=== PATIENT | male | born 1985 | race African-American/Black ===

== ENCOUNTER 2016-10-20 03:11 | Emergency (ER) | payer OTHER ==
[~2016-10-20] VITALS: Ht 177.8 cm; Wt 63.0 kg
[2016-10-20 05:02] LABS: BASOPHILS % 0.6 % (0.0-2.0); EOSINOPHILS % 1.1 % (0.0-5.0); HEMATOCRIT. 40.7 % (42.0-52.0); HEMOGLOBIN. 13.7 g/dL (14.0-18.0); LYMPHOCYTES % 28.3 % (20.0-50.0); MEAN CORPUSCULAR HEMOGLOBIN 30.2 pg (28.0-32.0); MEAN CORPUSCULAR HGB CONC 33.6 g/dL (31.0-37.0); MEAN CORPUSCULAR VOLUME 89.7 fL (80.0-94.0); MEAN PLATELET VOLUME 8.5 fl (7.4-10.4); MONOCYTES % 6.8 % (2.0-8.0); NEUTROPHILS % 63.2 % (40.0-76.0); PLATELET 197 x1000/uL (130-400); RED BLOOD CELL COUNT 4.53 mill/uL (4.7-6.1); RED CELL DISTRIBUTION WIDTH 12.8 % (11.6-14.6); WHITE BLOOD COUNT 10.3 x1000/uL (4.5-11.0)
[2016-10-20 05:17] LABS: ALANINE AMINOTRANSFERASE 21 IU/L (13-61); ALBUMIN 3.6 g/dL (3.4-5.0); ANION GAP 13; CALCIUM 8.5 mg/dL (8.5-10.1); CARBON DIOXIDE 28 mEq/L (21-32); CHLORIDE 106 mEq/L (98-107); ETHANOL BLOOD < 10 mg/dL; INDEX HEMOLYSI 1 (1-3); INDEX ICTERIC 1 (1-4); INDEX LIPEMIC 1 (1-3); UREA NITROGEN BLOOD 9 mg/dL (7-21); eGFR > 60 mL/min (>60)
[2016-10-20 06:25] VITALS: BP 148/85
[2016-10-20 07:17] LABS: *AMPHETAMINES SCREEN URINE NEGATIVE (NEGATIVE); *BARBITURATES SCREEN URINE NEGATIVE (NEGATIVE); *BENZODIAZEPINES SCREEN URINE NEGATIVE (NEGATIVE); *COCAINE SCREEN URINE NEGATIVE (NEGATIVE); CANNABINOID URINE SCREEN PRESUMTIVE POSITIVE (NEGATIVE); ECSTASY MDMA SCREEN URINE NEGATIVE (NEGATIVE); METHADONE URINE SCREEN NEGATIVE (NEGATIVE); OPIATES URINE SCREEN NEGATIVE (NEGATIVE); PHENCYCLIDINE URINE SCREEN NEGATIVE (NEGATIVE)
== END 2016-10-20 07:05 | disposition home or self-care (01) ==
LOC: ER 03:13
DX: M94.0 Chondrocostal junction syndrome [Tietze] (principal); F12.10 Cannabis abuse, uncomplicated
CPT/HCPCS: 36415; 71010; 80053; 80305; 85025; 93005; 99285; G0482

== ENCOUNTER 2016-11-10 01:16 | Emergency (ER) | payer OTHER ==
[~2016-11-10] VITALS: Ht 185.4 cm; Wt 65.0 kg
[2016-11-10 01:39] VITALS: BP 138/81
[2016-11-10] MEDS ORDERED: IBUPROFEN 600MG TABLET PO ONE (02:45)
== END 2016-11-10 04:01 | disposition home or self-care (01) ==
LOC: ER 01:16
DX: M94.0 Chondrocostal junction syndrome [Tietze] (principal); F17.210 Nicotine dependence, cigarettes, uncomplicated
CPT/HCPCS: 71020; 99284

== ENCOUNTER 2016-11-13 06:09 | Emergency (ER) | payer OTHER ==
[~2016-11-13] VITALS: Ht 177.8 cm; Wt 68.2 kg
[2016-11-13] MEDS ORDERED: IBUPROFEN 800MG TABLET PO ONE (07:45)
[2016-11-13 07:46] VITALS: BP 106/55
== END 2016-11-13 08:06 | disposition home or self-care (01) ==
LOC: ER 06:11
DX: M62.830 Muscle spasm of back (principal); F17.210 Nicotine dependence, cigarettes, uncomplicated; Z98.1 Arthrodesis status
CPT/HCPCS: 99283

== ENCOUNTER 2017-01-05 05:36 | Emergency (ER) | payer OTHER ==
[~2017-01-05] VITALS: Ht 170.2 cm; Wt 64.0 kg
[2017-01-05 06:42] LABS: BASOPHILS % 0.7 % (0.0-2.0); EOSINOPHILS % 3.4 % (0.0-5.0); HEMATOCRIT. 39.5 % (42.0-52.0); HEMOGLOBIN. 13.6 g/dL (14.0-18.0); LYMPHOCYTES % 23.3 % (20.0-50.0); MEAN CORPUSCULAR HEMOGLOBIN 30.2 pg (28.0-32.0); MEAN CORPUSCULAR VOLUME 88.1 fL (80.0-94.0); MEAN PLATELET VOLUME 8.7 fl (7.4-10.4); MONOCYTES % 9.5 % (2.0-8.0); NEUTROPHILS % 63.1 % (40.0-76.0); PLATELET 189 x1000/uL (130-400); RED BLOOD CELL COUNT 4.49 mill/uL (4.7-6.1); RED CELL DISTRIBUTION WIDTH 13.9 % (11.6-14.6)
[2017-01-05 06:50] LABS: INR 1.2; PARTIAL THROMBOPLASTIN TIME 27.1 sec (24.0-34.0); PROTHROMBIN TIME 12.4 sec
[2017-01-05 06:54] LABS: CARBON DIOXIDE 27 mEq/L (21-32); CHLORIDE 104 mEq/L (98-107); ETHANOL BLOOD < 10 mg/dL
[2017-01-05] MEDS ORDERED: MAGNESIUM/ALUMINUM HYDROXIDE/SIMETHICONE 30ML UDC PO ONE (07:45)
[2017-01-05 07:59] LABS: *AMPHETAMINES SCREEN URINE NEGATIVE (NEGATIVE); *BARBITURATES SCREEN URINE NEGATIVE (NEGATIVE); *BENZODIAZEPINES SCREEN URINE NEGATIVE (NEGATIVE); *COCAINE SCREEN URINE NEGATIVE (NEGATIVE); CANNABINOID URINE SCREEN PRESUMTIVE POSITIVE (NEGATIVE); METHADONE URINE SCREEN NEGATIVE (NEGATIVE); OPIATES URINE SCREEN NEGATIVE (NEGATIVE); PHENCYCLIDINE URINE SCREEN NEGATIVE (NEGATIVE)
[2017-01-05 09:48] VITALS: BP 121/76
== END 2017-01-05 09:49 | disposition home or self-care (01) ==
LOC: ER 05:36
DX: R10.13 Epigastric pain (principal); M54.12 Radiculopathy, cervical region; F12.10 Cannabis abuse, uncomplicated
CPT/HCPCS: 36415; 72040; 80053; 80305; 83690; 85025; 85610; 85730; 99285; G0482

== ENCOUNTER 2017-01-14 00:32 | Emergency (ER) | payer OTHER ==
[~2017-01-14] VITALS: Ht 177.8 cm; Wt 73.0 kg
[2017-01-14] MEDS ORDERED: IBUPROFEN 600MG TABLET PO ONE (04:00)
[2017-01-14 05:19] VITALS: BP 118/76
== END 2017-01-14 05:31 | disposition home or self-care (01) ==
LOC: ER 00:32
DX: M25.774 Osteophyte, right foot (principal)
CPT/HCPCS: 99283

== ENCOUNTER 2017-01-29 03:31 | Emergency (ER) | payer OTHER ==
[~2017-01-29] VITALS: Ht 180.3 cm; Wt 66.0 kg
[2017-01-29] MEDS ORDERED: IBUPROFEN 600MG TABLET PO ONE (04:45)
[2017-01-29 04:59] VITALS: BP 92/45
[2017-01-29 05:05] LABS: BASOPHILS % 0.8 % (0.0-2.0); EOSINOPHILS % 1.8 % (0.0-5.0); HEMATOCRIT. 40.5 % (42.0-52.0); HEMOGLOBIN. 13.6 g/dL (14.0-18.0); LYMPHOCYTES % 28.4 % (20.0-50.0); MEAN CORPUSCULAR HEMOGLOBIN 29.9 pg (28.0-32.0); MEAN CORPUSCULAR VOLUME 89.1 fL (80.0-94.0); MEAN PLATELET VOLUME 8.6 fl (7.4-10.4); MONOCYTES % 6.8 % (2.0-8.0); NEUTROPHILS % 62.2 % (40.0-76.0); PLATELET 198 x1000/uL (130-400); RED BLOOD CELL COUNT 4.55 mill/uL (4.7-6.1); RED CELL DISTRIBUTION WIDTH 13.9 % (11.6-14.6)
[2017-01-29 05:21] LABS: CARBON DIOXIDE 24 mEq/L (21-32); CHLORIDE 107 mEq/L (98-107); ETHANOL BLOOD 36 mg/dL; TROPONIN I < 0.02 ng/mL (0.00-0.04)
== END 2017-01-29 06:42 | disposition home or self-care (01) ==
LOC: ER 03:31
DX: M54.6 Pain in thoracic spine (principal); F12.10 Cannabis abuse, uncomplicated; F10.10 Alcohol abuse, uncomplicated; F17.210 Nicotine dependence, cigarettes, uncomplicated; Y90.1 Blood alcohol level of 20-39 mg/100 ml
CPT/HCPCS: 36415; 71010; 80053; 83690; 84484; 85025; 93005; 99285; G0482; Z7610

== ENCOUNTER 2017-02-08 20:59 | Emergency (ER) | payer OTHER | END 2017-02-08 22:18 | disposition left against medical advice (07) | LOC: ER 22:10 | DX: Z53.21 Procedure and treatment not carried out due to patient leaving prior to being seen by health care provider (principal) ==

== ENCOUNTER 2017-02-09 02:20 | Emergency (ER) | payer OTHER ==
[~2017-02-09] VITALS: Ht 177.8 cm; Wt 63.0 kg
[2017-02-09] MEDS ORDERED: KETOROLAC 60MG/2ML VIAL IM ONE (06:30)
[2017-02-09] MEDS ORDERED: IBUPROFEN 600MG TABLET PO ONE (06:30)
[2017-02-09 06:52] VITALS: BP 124/69
== END 2017-02-09 07:12 | disposition home or self-care (01) ==
LOC: ER 02:20
DX: M54.6 Pain in thoracic spine (principal); F17.200 Nicotine dependence, unspecified, uncomplicated; F12.10 Cannabis abuse, uncomplicated
CPT/HCPCS: 99283; J1885

== ENCOUNTER 2017-02-16 02:11 | Emergency (ER) | payer OTHER ==
[~2017-02-16] VITALS: Ht 177.8 cm; Wt 66.0 kg
[2017-02-16] MEDS ORDERED: IBUPROFEN 600MG TABLET PO ONE (03:00)
[2017-02-16 03:07] VITALS: BP 120/69
== END 2017-02-16 03:27 | disposition home or self-care (01) ==
LOC: ER 02:11
DX: M54.5 Low back pain (principal); R51 Headache; Z59.0 Homelessness; F12.10 Cannabis abuse, uncomplicated
CPT/HCPCS: 99282; 99283

== ENCOUNTER 2017-03-27 22:57 | Emergency (ER) | payer OTHER ==
[~2017-03-27] VITALS: Ht 175.3 cm; Wt 64.0 kg
[2017-03-28 01:32] VITALS: BP 90/51
== END 2017-03-28 03:54 | disposition left against medical advice (07) ==
LOC: ER 22:57
DX: M54.9 Dorsalgia, unspecified (principal); Z53.21 Procedure and treatment not carried out due to patient leaving prior to being seen by health care provider

== ENCOUNTER 2017-04-15 01:04 | Emergency (ER) | payer MEDICAID, OTHER ==
[~2017-04-15] VITALS: Ht 180.3 cm; Wt 68.0 kg
[2017-04-15] MEDS ORDERED: IBUPROFEN 800MG TABLET PO ONE (06:30)
[2017-04-15 09:06] VITALS: BP 136/55
== END 2017-04-15 10:32 | disposition home or self-care (01) ==
LOC: ER 01:04
DX: M54.89 Other dorsalgia (principal); F12.90 Cannabis use, unspecified, uncomplicated
CPT/HCPCS: 99283; Z7610

== ENCOUNTER 2017-04-19 01:43 | Emergency (ER) | payer SELFPAY ==
[~2017-04-19] VITALS: Ht 175.3 cm; Wt 57.0 kg
[2017-04-19 01:55] VITALS: BP 123/82
== END 2017-04-19 07:23 | disposition left against medical advice (07) ==
LOC: ER 01:43
DX: M54.9 Dorsalgia, unspecified (principal); Z53.21 Procedure and treatment not carried out due to patient leaving prior to being seen by health care provider

== ENCOUNTER 2017-04-25 02:53 | Emergency (ER) | payer MEDICAID ==
[~2017-04-25] VITALS: Ht 193 cm; Wt 68.0 kg
[2017-04-25] MEDS ORDERED: KETOROLAC 60MG/2ML VIAL IM ONE (06:30)
[2017-04-25 07:07] VITALS: BP 116/89
== END 2017-04-25 07:11 | disposition home or self-care (01) ==
LOC: ER 02:53
DX: G89.29 Other chronic pain (principal); M54.9 Dorsalgia, unspecified; F17.200 Nicotine dependence, unspecified, uncomplicated; F12.10 Cannabis abuse, uncomplicated
CPT/HCPCS: 96372; 99283; J1885

== ENCOUNTER 2017-05-09 04:41 | Emergency (ER) | payer MEDICAID | END 2017-05-09 05:25 | disposition left against medical advice (07) | LOC: ER 04:41 | DX: M54.9 Dorsalgia, unspecified (principal); Z53.21 Procedure and treatment not carried out due to patient leaving prior to being seen by health care provider ==

== ENCOUNTER 2017-05-09 07:16 | Emergency (ER) | payer MEDICAID ==
[~2017-05-09] VITALS: Ht 177.8 cm; Wt 68.0 kg
[2017-05-09 08:10] VITALS: BP 115/79
== END 2017-05-09 08:12 | disposition home or self-care (01) ==
LOC: ER 07:53
DX: M54.6 Pain in thoracic spine (principal); F17.200 Nicotine dependence, unspecified, uncomplicated; F12.10 Cannabis abuse, uncomplicated
CPT/HCPCS: 99282

== ENCOUNTER 2017-05-21 04:03 | Emergency (ER) | payer MEDICAID ==
[~2017-05-21] VITALS: Ht 177.8 cm; Wt 70.0 kg
[2017-05-21 04:22] VITALS: BP 116/71
== END 2017-05-21 06:52 | disposition left against medical advice (07) ==
LOC: ER 04:03
DX: J02.9 Acute pharyngitis, unspecified (principal); M54.5 Low back pain; Z53.21 Procedure and treatment not carried out due to patient leaving prior to being seen by health care provider

== ENCOUNTER 2017-06-07 20:35 | Emergency (ER) | payer MEDICAID ==
[~2017-06-07] VITALS: Ht 177.8 cm; Wt 68.0 kg
[2017-06-07] MEDS ORDERED: POVIDONE-IODINE 10% TOPICAL SOLN 240ML TOP ONE (21:45)
[2017-06-07] MEDS ORDERED: BACITRACIN ZINC OINT UDPKT TOP ONE (21:45)
[2017-06-07 22:53] VITALS: BP 110/61
== END 2017-06-07 22:54 | disposition home or self-care (01) ==
LOC: ER 20:55
DX: S90.415A Abrasion, left lesser toe(s), initial encounter (principal); S90.414A Abrasion, right lesser toe(s), initial encounter; S90.412A Abrasion, left great toe, initial encounter; S90.411A Abrasion, right great toe, initial encounter; F17.200 Nicotine dependence, unspecified, uncomplicated; F12.10 Cannabis abuse, uncomplicated; X58.XXXA Exposure to other specified factors, initial encounter; Y93.89 Activity, other specified; Y92.89 Other specified places as the place of occurrence of the external cause; Y99.8 Other external cause status
CPT/HCPCS: 99283; A4246

== ENCOUNTER 2017-06-14 23:34 | Emergency (ER) | payer MEDICAID ==
[~2017-06-14] VITALS: Ht 177.8 cm; Wt 68.0 kg
[2017-06-15] MEDS ORDERED: IBUPROFEN 800MG TABLET PO ONE (06:30)
[2017-06-15 07:44] VITALS: BP 106/72
== END 2017-06-15 08:30 | disposition home or self-care (01) ==
LOC: ER 23:59
DX: S90.822A Blister (nonthermal), left foot, initial encounter (principal); S90.821A Blister (nonthermal), right foot, initial encounter; M54.6 Pain in thoracic spine; F17.200 Nicotine dependence, unspecified, uncomplicated; F12.10 Cannabis abuse, uncomplicated; X58.XXXA Exposure to other specified factors, initial encounter; Y93.89 Activity, other specified; Y92.89 Other specified places as the place of occurrence of the external cause; Y99.8 Other external cause status
CPT/HCPCS: 99283

== ENCOUNTER 2017-06-18 03:22 | Emergency (ER) | payer MEDICAID ==
[~2017-06-18] VITALS: Ht 180.3 cm; Wt 68.0 kg
[2017-06-18] MEDS ORDERED: ACETAMINOPHEN 500MG TABLET PO ONE (07:00)
[2017-06-18 07:12] VITALS: BP 107/61
== END 2017-06-18 07:19 | disposition home or self-care (01) ==
LOC: ER 03:22
DX: M54.89 Other dorsalgia (principal); F17.210 Nicotine dependence, cigarettes, uncomplicated; F12.10 Cannabis abuse, uncomplicated
CPT/HCPCS: 99283

== ENCOUNTER 2017-07-11 22:48 | Emergency (ER) | payer MEDICAID ==
[~2017-07-11] VITALS: Ht 177.8 cm; Wt 68.0 kg
[2017-07-12] VITALS: BP 131/83
== END 2017-07-12 00:02 | disposition home or self-care (01) ==
LOC: ER 22:48
DX: K04.7 Periapical abscess without sinus (principal); K02.9 Dental caries, unspecified
CPT/HCPCS: 99283

== ENCOUNTER 2017-07-24 06:50 | Emergency (ER) | payer MEDICAID ==
[~2017-07-24] VITALS: Ht 177.8 cm; Wt 68.0 kg
[2017-07-24 07:02] VITALS: BP 105/41
== END 2017-07-24 11:59 | disposition left against medical advice (07) ==
LOC: ER 07:14
DX: M54.9 Dorsalgia, unspecified (principal); F17.210 Nicotine dependence, cigarettes, uncomplicated; F12.90 Cannabis use, unspecified, uncomplicated; F10.10 Alcohol abuse, uncomplicated
CPT/HCPCS: 99281

== ENCOUNTER 2017-08-21 23:59 | Emergency (ER) | payer MEDICAID ==
[~2017-08-21] VITALS: Ht 177.8 cm; Wt 68.0 kg
[2017-08-22 04:45] VITALS: BP 110/57
== END 2017-08-22 04:47 | disposition home or self-care (01) ==
LOC: ER 23:59
DX: J40 Bronchitis, not specified as acute or chronic (principal); F12.10 Cannabis abuse, uncomplicated; F17.200 Nicotine dependence, unspecified, uncomplicated
CPT/HCPCS: 99283

== ENCOUNTER 2017-09-02 04:08 | Emergency (ER) | payer MEDICAID ==
[~2017-09-02] VITALS: Ht 177.8 cm; Wt 62.0 kg
[2017-09-02 04:20] VITALS: BP 121/73
== END 2017-09-02 08:45 | disposition left against medical advice (07) ==
LOC: ER 04:08
DX: R05 Cough (principal); M54.9 Dorsalgia, unspecified; Z53.21 Procedure and treatment not carried out due to patient leaving prior to being seen by health care provider

== ENCOUNTER 2017-09-04 07:20 | Emergency (ER) | payer MEDICAID ==
[~2017-09-04] VITALS: Ht 177.8 cm; Wt 64.3 kg
[2017-09-04 07:35] VITALS: BP 116/64
== END 2017-09-04 11:02 | disposition left against medical advice (07) ==
LOC: ER 07:45
DX: Z53.21 Procedure and treatment not carried out due to patient leaving prior to being seen by health care provider (principal)

== ENCOUNTER 2017-09-05 01:50 | Emergency (ER) | payer MEDICAID ==
[~2017-09-05] VITALS: Ht 177.8 cm; Wt 68.0 kg
[2017-09-05 05:26] VITALS: BP 105/44
== END 2017-09-05 07:56 | disposition home or self-care (01) ==
LOC: ER 02:11
DX: J06.9 Acute upper respiratory infection, unspecified (principal); F17.200 Nicotine dependence, unspecified, uncomplicated; I10 Essential (primary) hypertension; F12.10 Cannabis abuse, uncomplicated
CPT/HCPCS: 71045; 99283; Z7610

== ENCOUNTER 2017-09-08 19:59 | Emergency (ER) | payer MEDICAID ==
[~2017-09-08] VITALS: Ht 177.8 cm; Wt 64.0 kg
[2017-09-08] MEDS ORDERED: KETOROLAC 60MG/2ML VIAL IM ONE (21:45)
[2017-09-08 22:09] VITALS: BP 129/84
== END 2017-09-08 21:40 | disposition home or self-care (01) ==
LOC: ER 21:03
DX: M54.9 Dorsalgia, unspecified (principal); M79.1 Myalgia; F17.200 Nicotine dependence, unspecified, uncomplicated; F12.10 Cannabis abuse, uncomplicated
CPT/HCPCS: 96372; 99283; J1885

== ENCOUNTER 2017-09-09 07:21 | Emergency (ER) | payer MEDICAID ==
[~2017-09-09] VITALS: Ht 182.9 cm; Wt 68.2 kg
[2017-09-09 08:32] VITALS: BP 127/81
== END 2017-09-09 09:05 | disposition home or self-care (01) ==
LOC: ER 07:28
DX: J02.9 Acute pharyngitis, unspecified (principal); F17.200 Nicotine dependence, unspecified, uncomplicated; F12.10 Cannabis abuse, uncomplicated
CPT/HCPCS: 99281; 99283

== ENCOUNTER 2017-09-14 03:55 | Emergency (ER) | payer MEDICAID ==
[~2017-09-14] VITALS: Ht 177.8 cm; Wt 64.0 kg
[2017-09-14 04:00] VITALS: BP 134/47
== END 2017-09-14 08:03 | disposition left against medical advice (07) ==
LOC: ER 03:55
DX: M54.9 Dorsalgia, unspecified (principal); Z53.21 Procedure and treatment not carried out due to patient leaving prior to being seen by health care provider

== ENCOUNTER 2017-09-15 03:49 | Emergency (ER) | payer MEDICAID ==
[~2017-09-15] VITALS: Ht 177.8 cm; Wt 64.0 kg
[2017-09-15 04:16] VITALS: BP 114/65
== END 2017-09-15 04:49 | disposition home or self-care (01) ==
LOC: ER 03:49
DX: R05 Cough (principal); F17.200 Nicotine dependence, unspecified, uncomplicated; F12.10 Cannabis abuse, uncomplicated
CPT/HCPCS: 99283

== ENCOUNTER 2017-09-17 06:06 | Emergency (ER) | payer MEDICAID ==
[~2017-09-17] VITALS: Ht 177.8 cm; Wt 63.0 kg
[2017-09-17 06:09] VITALS: BP 107/71
== END 2017-09-17 08:21 | disposition left against medical advice (07) ==
LOC: ER 06:15
DX: M54.9 Dorsalgia, unspecified (principal); Z53.21 Procedure and treatment not carried out due to patient leaving prior to being seen by health care provider

== ENCOUNTER 2017-09-18 01:19 | Emergency (ER) | payer MEDICAID ==
[~2017-09-18] VITALS: Ht 177.8 cm; Wt 68.0 kg
[2017-09-18 06:10] VITALS: BP 118/62
[2017-09-18] MEDS ORDERED: ACETAMINOPHEN 325MG TABLET PO ONE (06:30)
== END 2017-09-18 06:58 | disposition home or self-care (01) ==
LOC: ER 02:27
DX: R51 Headache (principal); J06.9 Acute upper respiratory infection, unspecified; F17.200 Nicotine dependence, unspecified, uncomplicated
CPT/HCPCS: 99282

== ENCOUNTER 2017-09-23 22:07 | Emergency (ER) | payer MEDICAID ==
[~2017-09-23] VITALS: Ht 180.3 cm; Wt 68.0 kg
[2017-09-24 00:42] VITALS: BP 122/72
== END 2017-09-24 01:17 | disposition home or self-care (01) ==
LOC: ER 22:07
DX: L20.9 Atopic dermatitis, unspecified (principal); F17.200 Nicotine dependence, unspecified, uncomplicated; F12.10 Cannabis abuse, uncomplicated
CPT/HCPCS: 99283

== ENCOUNTER 2017-09-30 03:38 | Emergency (ER) | payer MEDICAID ==
[~2017-09-30] VITALS: Ht 180.3 cm; Wt 69.0 kg
[2017-09-30] MEDS ORDERED: HALOPERIDOL LACTATE 5MG/ML VIAL IM ONE (08:30)
[2017-09-30] MEDS ORDERED: IBUPROFEN 600MG TABLET PO ONE (08:30)
[2017-09-30 08:58] VITALS: BP 114/72
== END 2017-09-30 09:11 | disposition home or self-care (01) ==
LOC: ER 04:04
DX: S29.012A Strain of muscle and tendon of back wall of thorax, initial encounter (principal); B86 Scabies; F17.200 Nicotine dependence, unspecified, uncomplicated; Z59.0 Homelessness; X58.XXXA Exposure to other specified factors, initial encounter; W57.XXXA Bitten or stung by nonvenomous insect and other nonvenomous arthropods, initial encounter; Y93.89 Activity, other specified; Y92.488 Other paved roadways as the place of occurrence of the external cause
CPT/HCPCS: 99283; Z7610

== ENCOUNTER 2017-10-03 01:45 | Emergency (ER) | payer MEDICAID ==
[~2017-10-03] VITALS: Ht 180.3 cm; Wt 69.0 kg
[2017-10-03 01:50] VITALS: BP 106/61
== END 2017-10-03 04:00 | disposition left against medical advice (07) ==
LOC: ER 01:45
DX: J02.9 Acute pharyngitis, unspecified (principal); R51 Headache; Z53.21 Procedure and treatment not carried out due to patient leaving prior to being seen by health care provider

== ENCOUNTER 2017-11-03 05:02 | Emergency (ER) | payer MEDICAID ==
[~2017-11-03] VITALS: Ht 177.8 cm; Wt 141.0 kg
[2017-11-03] MEDS ORDERED: IBUPROFEN 600MG TABLET PO ONE (09:00)
[2017-11-03 09:30] VITALS: BP 115/61
== END 2017-11-03 10:05 | disposition home or self-care (01) ==
LOC: ER 05:02
DX: M54.89 Other dorsalgia (principal); R21 Rash and other nonspecific skin eruption; F17.200 Nicotine dependence, unspecified, uncomplicated; F12.10 Cannabis abuse, uncomplicated
CPT/HCPCS: 99283

== ENCOUNTER 2018-04-15 00:28 | Emergency (ER) | payer MEDICAID ==
[~2018-04-15] VITALS: Ht 180.3 cm; Wt 64.0 kg
[2018-04-15 07:00] VITALS: BP 116/58
== END 2018-04-15 07:37 | disposition home or self-care (01) ==
LOC: ER 00:28
DX: B86 Scabies (principal); F17.210 Nicotine dependence, cigarettes, uncomplicated; F12.90 Cannabis use, unspecified, uncomplicated; Z59.0 Homelessness; Z53.21 Procedure and treatment not carried out due to patient leaving prior to being seen by health care provider

== ENCOUNTER 2018-04-17 05:42 | Emergency (ER) | payer MEDICAID ==
[~2018-04-17] VITALS: Ht 180.3 cm; Wt 64.0 kg
[2018-04-17] MEDS ORDERED: HYDROCORTISONE 1% OINT 28.35GM TOP SCH (06:30)
[2018-04-17] MEDS ORDERED: PREDNISONE 20MG TABLET PO ONE (06:30)
[2018-04-17 07:56] VITALS: BP 119/72
== END 2018-04-17 07:58 | disposition home or self-care (01) ==
LOC: ER 05:42
DX: L20.9 Atopic dermatitis, unspecified (principal); F17.200 Nicotine dependence, unspecified, uncomplicated; F12.10 Cannabis abuse, uncomplicated
CPT/HCPCS: 99283; J7512

== ENCOUNTER 2018-04-19 04:56 | Emergency (ER) | payer MEDICAID ==
[~2018-04-19] VITALS: Ht 177.8 cm; Wt 64.0 kg
[2018-04-19] MEDS ORDERED: IBUPROFEN 600MG TABLET PO ONE (06:15)
[2018-04-19 07:43] VITALS: BP 147/88
== END 2018-04-19 07:52 | disposition home or self-care (01) ==
LOC: ER 05:46
DX: S93.492A Sprain of other ligament of left ankle, initial encounter (principal); S93.692A Other sprain of left foot, initial encounter; F12.10 Cannabis abuse, uncomplicated; X50.1XXA Overexertion from prolonged static or awkward postures, initial encounter; Y93.89 Activity, other specified; Y92.89 Other specified places as the place of occurrence of the external cause; Y99.8 Other external cause status
CPT/HCPCS: 73610; 73630; 99284; Z7610

== ENCOUNTER 2018-04-23 12:52 | Emergency (ER) | payer MEDICAID ==
[~2018-04-23] VITALS: Ht 180.3 cm; Wt 68.0 kg
[2018-04-23 13:10] VITALS: BP 110/65
== END 2018-04-23 17:07 | disposition left against medical advice (07) ==
LOC: ER 14:20
DX: R10.13 Epigastric pain (principal); M54.9 Dorsalgia, unspecified; F12.10 Cannabis abuse, uncomplicated; Z53.21 Procedure and treatment not carried out due to patient leaving prior to being seen by health care provider

== ENCOUNTER 2018-04-24 00:18 | Emergency (ER) | payer MEDICAID ==
[~2018-04-24] VITALS: Ht 177.8 cm; Wt 65.0 kg
[2018-04-24] MEDS ORDERED: IBUPROFEN 600MG TABLET PO ONE (03:30)
[2018-04-24 05:21] LABS: CLARITY URINE CLEAR (CLEAR); COLOR URINE DARK YELLOW (YELLOW); KETONES URINE TRACE (NEGATIVE); NITRITE URINE NEGATIVE (NEGATIVE); OCCULT BLOOD URINE NEGATIVE (NEGATIVE); PH URINE 5.5 (4.5-8.0); PROTEIN URINE TRACE (NEGATIVE)
[2018-04-24 05:22] LABS: LEUKOCYTE ESTERASE URINE 1+ (NEGATIVE)
[2018-04-24 05:38] LABS: *AMPHETAMINES SCREEN URINE NEGATIVE (NEGATIVE); *BARBITURATES SCREEN URINE NEGATIVE (NEGATIVE); *BENZODIAZEPINES SCREEN URINE NEGATIVE (NEGATIVE)
[2018-04-24 05:39] LABS: *COCAINE SCREEN URINE NEGATIVE (NEGATIVE); METHADONE URINE SCREEN NEGATIVE (NEGATIVE); OPIATES URINE SCREEN NEGATIVE (NEGATIVE); PHENCYCLIDINE URINE SCREEN NEGATIVE (NEGATIVE)
[2018-04-24 05:41] LABS: CANNABINOID URINE SCREEN PRESUMTIVE POSITIVE (NEGATIVE)
[2018-04-24] MEDS ORDERED: CEFTRIAXONE SODIUM 250 MG/VIAL IM ONE (05:45)
[2018-04-24] MEDS ORDERED: AZITHROMYCIN 500 MG TABLET PO ONE (05:45)
[2018-04-24 06:34] VITALS: BP 116/53
== END 2018-04-24 06:39 | disposition home or self-care (01) ==
LOC: ER 01:34
DX: N39.0 Urinary tract infection, site not specified (principal); F17.210 Nicotine dependence, cigarettes, uncomplicated
CPT/HCPCS: 80305; 81003; 87086; 96372; 99284; J0696; Z7610

== ENCOUNTER 2018-04-30 10:51 | Emergency (ER) | payer MEDICAID ==
[~2018-04-30] VITALS: Ht 177.8 cm; Wt 68.0 kg
[2018-04-30 10:55] VITALS: BP 102/59
== END 2018-04-30 15:47 | disposition left against medical advice (07) ==
LOC: ER 10:51
DX: J02.9 Acute pharyngitis, unspecified (principal); R21 Rash and other nonspecific skin eruption; Z53.21 Procedure and treatment not carried out due to patient leaving prior to being seen by health care provider

== ENCOUNTER 2018-04-30 21:16 | Emergency (ER) | payer MEDICAID ==
[~2018-04-30] VITALS: Ht 177.8 cm; Wt 66.0 kg
[2018-04-30 21:35] VITALS: BP 130/50
== END 2018-04-30 23:00 | disposition left against medical advice (07) ==
LOC: ER 21:16
DX: R07.89 Other chest pain (principal); R21 Rash and other nonspecific skin eruption; Z53.21 Procedure and treatment not carried out due to patient leaving prior to being seen by health care provider

== ENCOUNTER 2018-05-01 05:07 | Emergency (ER) | payer MEDICAID ==
[~2018-05-01] VITALS: Ht 177.8 cm; Wt 64.0 kg
[2018-05-01] MEDS ORDERED: ACETAMINOPHEN 325MG TABLET PO STA (07:08)
[2018-05-01] MEDS ORDERED: VISCOUS LIDOCAINE 2% 15 ML UDC PO STA (07:08)
[2018-05-01] MEDS ORDERED: MAGNESIUM/ALUMINUM HYDROXIDE/SIMETHICONE 30ML UDC PO STA (07:08)
[2018-05-01 08:04] LABS: EOSINOPHILS % 7.2 % (0.0-5.0); HEMATOCRIT. 43.9 % (42.0-52.0); LYMPHOCYTES % 23.5 % (20.0-50.0); MEAN CORPUSCULAR HEMOGLOBIN 30.3 pg (28.0-32.0); MEAN CORPUSCULAR VOLUME 88.6 fL (80.0-94.0); MEAN PLATELET VOLUME 8.4 fl (7.4-10.4); MONOCYTES % 7.6 % (2.0-8.0); NEUTROPHILS % 60.7 % (40.0-76.0); PLATELET 266 x1000/uL (130-400); RED BLOOD CELL COUNT 4.96 mill/uL (4.7-6.1); RED CELL DISTRIBUTION WIDTH 13.1 % (11.6-14.6)
[2018-05-01 08:06] LABS: CHLORIDE 104 mEq/L (98-107)
[2018-05-01 08:10] LABS: ETHANOL BLOOD < 10 mg/dL
[2018-05-01 10:07] LABS: CANNABINOID URINE SCREEN PRESUMTIVE POSITIVE (NEGATIVE); METHADONE URINE SCREEN NEGATIVE (NEGATIVE); OPIATES URINE SCREEN NEGATIVE (NEGATIVE); PHENCYCLIDINE URINE SCREEN NEGATIVE (NEGATIVE)
[2018-05-01 10:09] LABS: *BARBITURATES SCREEN URINE NEGATIVE (NEGATIVE)
[2018-05-01 10:10] LABS: *AMPHETAMINES SCREEN URINE NEGATIVE (NEGATIVE)
[2018-05-01 10:11] LABS: *COCAINE SCREEN URINE NEGATIVE (NEGATIVE)
[2018-05-01 10:14] LABS: *BENZODIAZEPINES SCREEN URINE NEGATIVE (NEGATIVE)
[2018-05-01 10:54] VITALS: BP 115/70
== END 2018-05-01 10:59 | disposition home or self-care (01) ==
LOC: ER 05:07
DX: R07.89 Other chest pain (principal); F12.10 Cannabis abuse, uncomplicated; F17.200 Nicotine dependence, unspecified, uncomplicated
CPT/HCPCS: 36415; 71045; 73630; 80053; 80305; 83690; 85025; 93005; 99285; G0482

== ENCOUNTER 2018-05-01 23:19 | Emergency (ER) | payer MEDICAID ==
[~2018-05-01] VITALS: Ht 177.8 cm; Wt 64.0 kg
[2018-05-01 23:45] VITALS: BP 120/60
== END 2018-05-02 00:39 | disposition left against medical advice (07) ==
LOC: ER 23:19
DX: Z53.21 Procedure and treatment not carried out due to patient leaving prior to being seen by health care provider (principal)

== ENCOUNTER 2018-05-03 00:36 | Emergency (ER) | payer MEDICAID ==
[~2018-05-03] VITALS: Ht 177.8 cm; Wt 66.0 kg
[2018-05-03 04:19] VITALS: BP 124/70
== END 2018-05-03 04:22 | disposition home or self-care (01) ==
LOC: ER 00:36
DX: J06.9 Acute upper respiratory infection, unspecified (principal); F12.10 Cannabis abuse, uncomplicated
CPT/HCPCS: 99283

== ENCOUNTER 2018-05-06 01:59 | Emergency (ER) | payer MEDICAID ==
[~2018-05-06] VITALS: Ht 177.8 cm; Wt 63.5 kg
[2018-05-06] MEDS ORDERED: DIPHENHYDRAMINE 25MG CAPSULE PO ONE (06:45)
[2018-05-06] MEDS ORDERED: HYDROCORTISONE 1% CREAM 30GM TOP ONE (06:45)
[2018-05-06] MEDS ORDERED: IBUPROFEN 600MG TABLET PO ONE (06:45)
[2018-05-06 09:24] VITALS: BP 109/68
== END 2018-05-06 09:28 | disposition home or self-care (01) ==
LOC: ER 07:11
DX: J02.9 Acute pharyngitis, unspecified (principal); K08.89 Other specified disorders of teeth and supporting structures; L30.9 Dermatitis, unspecified; F17.200 Nicotine dependence, unspecified, uncomplicated; F12.10 Cannabis abuse, uncomplicated; Z98.890 Other specified postprocedural states
CPT/HCPCS: 71045; 87070; 87430; 99285; 99406; Q0163

== ENCOUNTER 2018-05-10 05:25 | Emergency (ER) | payer MEDICAID ==
[~2018-05-10] VITALS: Ht 177.8 cm; Wt 65.0 kg
[2018-05-10] MEDS ORDERED: ACETAMINOPHEN 325MG TABLET PO ONE (06:45)
[2018-05-10 07:12] VITALS: BP 106/65
== END 2018-05-10 07:14 | disposition home or self-care (01) ==
LOC: ER 05:25
DX: J39.9 Disease of upper respiratory tract, unspecified (principal); F17.200 Nicotine dependence, unspecified, uncomplicated; F12.10 Cannabis abuse, uncomplicated
CPT/HCPCS: 99283

== ENCOUNTER 2018-05-11 01:36 | Emergency (ER) | payer MEDICAID ==
[~2018-05-11] VITALS: Ht 177.8 cm; Wt 66.0 kg
[2018-05-11 10:22] VITALS: BP 97/53
== END 2018-05-11 10:21 | disposition home or self-care (01) ==
LOC: ER 01:36
DX: R05 Cough (principal); L30.9 Dermatitis, unspecified; F17.210 Nicotine dependence, cigarettes, uncomplicated; F12.90 Cannabis use, unspecified, uncomplicated
CPT/HCPCS: 71045; 99283

== ENCOUNTER 2018-05-18 02:03 | Emergency (ER) | payer MEDICAID ==
[~2018-05-18] VITALS: Ht 177.8 cm; Wt 66.0 kg
[2018-05-18 05:39] VITALS: BP 116/72
== END 2018-05-18 05:41 | disposition home or self-care (01) ==
LOC: ER 02:03
DX: B34.9 Viral infection, unspecified (principal); R03.0 Elevated blood-pressure reading, without diagnosis of hypertension; F17.210 Nicotine dependence, cigarettes, uncomplicated; F12.90 Cannabis use, unspecified, uncomplicated
CPT/HCPCS: 99283

== ENCOUNTER 2018-05-21 01:55 | Emergency (ER) | payer MEDICAID ==
[~2018-05-21] VITALS: Ht 177.8 cm; Wt 65.0 kg
[2018-05-21 07:41] VITALS: BP 105/41
== END 2018-05-21 07:53 | disposition home or self-care (01) ==
LOC: ER 01:55
DX: S29.012A Strain of muscle and tendon of back wall of thorax, initial encounter (principal); F17.200 Nicotine dependence, unspecified, uncomplicated; F12.10 Cannabis abuse, uncomplicated; X58.XXXA Exposure to other specified factors, initial encounter; Y93.89 Activity, other specified; Y92.89 Other specified places as the place of occurrence of the external cause; Y99.8 Other external cause status
CPT/HCPCS: 99283

== ENCOUNTER 2018-05-29 16:20 | Emergency (ER) | payer MEDICAID ==
[~2018-05-29] VITALS: Ht 177.8 cm; Wt 59.0 kg
[2018-05-29] MEDS ORDERED: IBUPROFEN 600MG TABLET PO ONE (17:15)
[2018-05-29 18:00] VITALS: BP 117/59
== END 2018-05-29 19:14 | disposition home or self-care (01) ==
LOC: ER 16:20
DX: J06.9 Acute upper respiratory infection, unspecified (principal); F12.10 Cannabis abuse, uncomplicated; R03.0 Elevated blood-pressure reading, without diagnosis of hypertension
CPT/HCPCS: 71045; 87804; 93005; 99285

== ENCOUNTER 2018-05-31 21:17 | Emergency (ER) | payer MEDICAID | END 2018-06-01 00:07 | disposition left against medical advice (07) | LOC: ER 21:17 | DX: Z53.21 Procedure and treatment not carried out due to patient leaving prior to being seen by health care provider (principal) ==

== ENCOUNTER 2018-06-30 03:29 | Emergency (ER) | payer MEDICAID ==
[~2018-06-30] VITALS: Ht 177.8 cm; Wt 72.0 kg
[2018-06-30] MEDS ORDERED: SODIUM CHLORIDE 0.9% 1,000 ML IV ONE (07:33)
[2018-06-30 08:11] LABS: EOSINOPHILS % 2.3 % (0.0-5.0); HEMATOCRIT. 40.1 % (42.0-52.0); HEMOGLOBIN. 13.6 g/dL (14.0-18.0); LYMPHOCYTES % 29.6 % (20.0-50.0); MEAN CORPUSCULAR HEMOGLOBIN 30.8 pg (28.0-32.0); MEAN PLATELET VOLUME 9.4 fl (7.4-10.4); MONOCYTES % 8.6 % (2.0-8.0); NEUTROPHILS % 58.5 % (40.0-76.0); PLATELET 181 x1000/uL (130-400); RED BLOOD CELL COUNT 4.41 mill/uL (4.7-6.1); RED CELL DISTRIBUTION WIDTH 13.9 % (11.6-14.6)
[2018-06-30 08:14] LABS: CHLORIDE 108 mEq/L (98-107)
[2018-06-30 11:55] VITALS: BP 109/66
== END 2018-06-30 11:58 | disposition home or self-care (01) ==
LOC: ER 04:39
DX: J02.9 Acute pharyngitis, unspecified (principal); R07.89 Other chest pain; F17.200 Nicotine dependence, unspecified, uncomplicated; F12.10 Cannabis abuse, uncomplicated
CPT/HCPCS: 36415; 71045; 80053; 85025; 93005; 99284; G0482; J7030

== ENCOUNTER 2018-07-20 03:15 | Emergency (ER) | payer MEDICAID ==
[~2018-07-20] VITALS: Ht 177.8 cm; Wt 68.0 kg
[2018-07-20] MEDS ORDERED: DIPHENHYDRAMINE 25MG CAPSULE PO ONE (03:45)
[2018-07-20 04:59] VITALS: BP 136/87
== END 2018-07-20 04:59 | disposition home or self-care (01) ==
LOC: ER 03:15
DX: S20.419A Abrasion of unspecified back wall of thorax, initial encounter (principal); R21 Rash and other nonspecific skin eruption; M54.6 Pain in thoracic spine; F12.10 Cannabis abuse, uncomplicated; X58.XXXA Exposure to other specified factors, initial encounter; Y93.89 Activity, other specified; Y92.89 Other specified places as the place of occurrence of the external cause; Y99.8 Other external cause status
CPT/HCPCS: 99282

== ENCOUNTER 2018-07-29 02:51 | Emergency (ER) | payer MEDICAID ==
[~2018-07-29] VITALS: Ht 177.8 cm; Wt 68.0 kg
[2018-07-29] MEDS ORDERED: IBUPROFEN 600MG TABLET PO ONE (03:45)
[2018-07-29 06:27] VITALS: BP 119/71
== END 2018-07-29 06:41 | disposition home or self-care (01) ==
LOC: ER 02:51
DX: M41.9 Scoliosis, unspecified (principal); F17.210 Nicotine dependence, cigarettes, uncomplicated; F12.90 Cannabis use, unspecified, uncomplicated
CPT/HCPCS: 99283

== ENCOUNTER 2018-08-04 03:01 | Emergency (ER) | payer MEDICAID ==
[~2018-08-04] VITALS: Ht 177.8 cm; Wt 64.0 kg
[2018-08-04 03:14] VITALS: BP 127/89
== END 2018-08-04 05:00 | disposition left against medical advice (07) ==
LOC: ER 03:01
DX: R10.9 Unspecified abdominal pain (principal); Z53.21 Procedure and treatment not carried out due to patient leaving prior to being seen by health care provider

== ENCOUNTER 2018-08-13 15:57 | Emergency (ER) | payer MEDICAID ==
[~2018-08-13] VITALS: Ht 177.8 cm; Wt 66.0 kg
[2018-08-13] MEDS ORDERED: IBUPROFEN 600MG TABLET PO ONE (18:15)
[2018-08-13] MEDS ORDERED: HYDROCORTISONE 1% OINT 28.35GM TOP SCH (18:15)
[2018-08-13 20:03] VITALS: BP 130/82
== END 2018-08-13 20:00 | disposition home or self-care (01) ==
LOC: ER 15:57
DX: L30.9 Dermatitis, unspecified (principal); R07.9 Chest pain, unspecified; Z59.0 Homelessness
CPT/HCPCS: 71045; 93005; 99283

== ENCOUNTER 2018-08-21 00:54 | Emergency (ER) | payer MEDICAID ==
[~2018-08-21] VITALS: Ht 177.8 cm; Wt 64.0 kg
[2018-08-21] MEDS ORDERED: IBUPROFEN 800MG TABLET PO ONE (04:15)
[2018-08-21 05:36] VITALS: BP 116/71
== END 2018-08-21 06:05 | disposition home or self-care (01) ==
LOC: ER 00:54
DX: R07.89 Other chest pain (principal)
CPT/HCPCS: 71045; 93005; 99283

== ENCOUNTER 2018-08-25 21:58 | Emergency (ER) | payer MEDICAID ==
[~2018-08-25] VITALS: Ht 177.8 cm; Wt 64.0 kg
[2018-08-25 22:25] VITALS: BP 146/91
== END 2018-08-25 22:57 | disposition left against medical advice (07) ==
LOC: ER 21:58
DX: M54.5 Low back pain (principal); Z53.21 Procedure and treatment not carried out due to patient leaving prior to being seen by health care provider

== ENCOUNTER 2018-08-29 08:28 | Emergency (ER) | payer MEDICAID ==
[~2018-08-29] VITALS: Ht 177.8 cm; Wt 64.0 kg
[2018-08-29 08:38] VITALS: BP 131/68
[2018-08-29] MEDS ORDERED: IBUPROFEN 600MG TABLET PO STA (10:28)
== END 2018-08-29 10:56 | disposition home or self-care (01) ==
LOC: ER 08:39
DX: J06.9 Acute upper respiratory infection, unspecified (principal); K02.9 Dental caries, unspecified; R51 Headache
CPT/HCPCS: 99283

== ENCOUNTER 2018-09-05 02:03 | Emergency (ER) | payer MEDICAID ==
[2018-09-05] MEDS ORDERED: IBUPROFEN 600MG TABLET PO SCH (03:37)
[2018-09-05] MEDS ORDERED: IBUPROFEN 600MG TABLET ONE (05:22)
[2018-09-05 07:56] LABS: BASOPHILS % 0.7 % (0.0-2.0); EOSINOPHILS % 0.7 % (0.0-5.0); HEMATOCRIT. 39.7 % (42.0-52.0); HEMOGLOBIN. 13.4 g/dL (14.0-18.0); LYMPHOCYTES % 20.5 % (20.0-50.0); MEAN CORPUSCULAR HEMOGLOBIN 30.3 pg (28.0-32.0); MEAN CORPUSCULAR VOLUME 89.6 fL (80.0-94.0); NEUTROPHILS % 71.1 % (40.0-76.0); PLATELET 173 x1000/uL (130-400); RED BLOOD CELL COUNT 4.43 mill/uL (4.7-6.1); RED CELL DISTRIBUTION WIDTH 13.3 % (11.6-14.6)
[2018-09-05 08:21] LABS: CHLORIDE 105 mEq/L (98-107); ETHANOL BLOOD < 10 mg/dL
== END 2018-09-05 07:25 | disposition home or self-care (01) ==
LOC: ER 02:03
DX: R10.11 Right upper quadrant pain (principal); K76.0 Fatty (change of) liver, not elsewhere classified; R03.0 Elevated blood-pressure reading, without diagnosis of hypertension
CPT/HCPCS: 36415; 72100; 76705; 80048; 99284

== ENCOUNTER 2018-09-06 23:52 | Emergency (ER) | payer MEDICAID | END 2018-09-07 01:53 | disposition left against medical advice (07) | LOC: ER 23:52 | DX: R07.9 Chest pain, unspecified (principal); Z53.21 Procedure and treatment not carried out due to patient leaving prior to being seen by health care provider ==

== ENCOUNTER 2018-09-11 12:46 | Emergency (ER) | payer MEDICAID ==
[~2018-09-11] VITALS: Ht 177.8 cm; Wt 64.0 kg
[2018-09-11] MEDS: IBUPROFEN 600MG TABLET PO ONE ×2 (18:46→18:49)
[2018-09-11] MEDS: HYDROCODONE/ACETAMINOPHEN 5/325MG TABLET PO ONE ×2 (18:46→18:49)
[2018-09-11] MEDS: AMOXICILLIN/POTASSIUM CLAVULANATE 875/125MG TAB PO ONE ×2 (18:46→18:49)
[2018-09-11 18:59] VITALS: BP 133/54
== END 2018-09-11 19:02 | disposition home or self-care (01) ==
LOC: ER 12:46
DX: K01.1 Impacted teeth (principal); M25.512 Pain in left shoulder; M25.511 Pain in right shoulder; F17.210 Nicotine dependence, cigarettes, uncomplicated; Z71.6 Tobacco abuse counseling; F12.90 Cannabis use, unspecified, uncomplicated
CPT/HCPCS: 99284; 99406

== ENCOUNTER 2018-09-14 21:04 | Emergency (ER) | payer MEDICAID ==
[~2018-09-14] VITALS: Ht 177.8 cm; Wt 63.6 kg
[2018-09-15 00:41] VITALS: BP 100/62
== END 2018-09-14 23:35 | disposition left against medical advice (07) ==
LOC: ER 21:04
DX: Z53.21 Procedure and treatment not carried out due to patient leaving prior to being seen by health care provider (principal)

== ENCOUNTER 2018-09-20 06:40 | Emergency (ER) | payer MEDICAID ==
[~2018-09-20] VITALS: Ht 177.8 cm; Wt 64.5 kg
[2018-09-20] MEDS ORDERED: ALBUTEROL (0.083%) 2.5MG/3ML NEB HHN STA (07:01)
[2018-09-20 09:34] VITALS: BP 121/64
== END 2018-09-20 09:36 | disposition home or self-care (01) ==
LOC: ER 06:40
DX: J40 Bronchitis, not specified as acute or chronic (principal); I10 Essential (primary) hypertension
CPT/HCPCS: 71045; 93005; 94640; 99283; J7611; Z7610

== ENCOUNTER 2018-09-24 01:38 | Emergency (ER) | payer MEDICAID ==
[~2018-09-24] VITALS: Ht 177.8 cm; Wt 73.0 kg
[2018-09-24 01:49] VITALS: BP 108/61
== END 2018-09-24 05:38 | disposition left against medical advice (07) ==
LOC: ER 01:38
DX: R07.89 Other chest pain (principal); Z53.21 Procedure and treatment not carried out due to patient leaving prior to being seen by health care provider

== ENCOUNTER 2018-09-29 09:05 | Emergency (ER) | payer MEDICAID ==
[~2018-09-29] VITALS: Ht 180.3 cm; Wt 68.0 kg
[2018-09-29 10:15] VITALS: BP 125/67
== END 2018-09-29 19:14 | disposition left against medical advice (07) ==
LOC: ER 09:28
DX: R07.89 Other chest pain (principal); Z53.21 Procedure and treatment not carried out due to patient leaving prior to being seen by health care provider

== ENCOUNTER 2018-10-08 07:02 | Emergency (ER) | payer MEDICAID ==
[~2018-10-08] VITALS: Ht 177.8 cm; Wt 69.0 kg
[2018-10-08 10:35] VITALS: BP 115/48
== END 2018-10-08 11:50 | disposition left against medical advice (07) ==
LOC: ER 07:02
DX: M54.6 Pain in thoracic spine (principal); Z53.21 Procedure and treatment not carried out due to patient leaving prior to being seen by health care provider

== ENCOUNTER 2018-10-13 06:24 | Emergency (ER) | payer MEDICAID ==
[~2018-10-13] VITALS: Ht 177.8 cm; Wt 68.0 kg
[2018-10-13] MEDS ORDERED: IBUPROFEN 600MG TABLET PO ONE (09:30)
[2018-10-13 09:40] VITALS: BP 132/77
[2018-10-13 09:40] LABS: CLARITY URINE CLEAR (CLEAR); COLOR URINE YELLOW (YELLOW); KETONES URINE NEGATIVE (NEGATIVE); LEUKOCYTE ESTERASE URINE NEGATIVE (NEGATIVE); NITRITE URINE NEGATIVE (NEGATIVE); OCCULT BLOOD URINE NEGATIVE (NEGATIVE); PH URINE 5.5 (4.5-8.0); PROTEIN URINE NEGATIVE (NEGATIVE); SPECIFIC GRAVITY URINE 1.022 (1.005-1.030); UROBILINOGEN URINE 0.2 E.U./dL (0.2-1.0)
== END 2018-10-13 10:01 | disposition home or self-care (01) ==
LOC: ER 06:24
DX: M54.5 Low back pain (principal); R05 Cough; M54.6 Pain in thoracic spine; F17.200 Nicotine dependence, unspecified, uncomplicated; F12.10 Cannabis abuse, uncomplicated
CPT/HCPCS: 99283; 99406

== ENCOUNTER 2018-10-28 03:27 | Emergency (ER) | payer MEDICAID ==
[~2018-10-28] VITALS: Ht 177.8 cm; Wt 62.5 kg
[2018-10-28 11:50] VITALS: BP 105/55
== END 2018-10-28 12:00 | disposition home or self-care (01) ==
LOC: ER 03:27
DX: R52 Pain, unspecified (principal); Z59.0 Homelessness; F17.210 Nicotine dependence, cigarettes, uncomplicated; F12.90 Cannabis use, unspecified, uncomplicated
CPT/HCPCS: 93005; 99283

== ENCOUNTER 2018-11-10 17:18 | Emergency (ER) | payer MEDICAID ==
[~2018-11-10] VITALS: Ht 177.8 cm; Wt 68.0 kg
[2018-11-10] MEDS ORDERED: KETOROLAC 60MG/2ML VIAL IM ONE (20:45)
[2018-11-10 20:56] VITALS: BP 130/96
== END 2018-11-10 21:01 | disposition home or self-care (01) ==
LOC: ER 17:18
DX: M54.9 Dorsalgia, unspecified (principal); F17.200 Nicotine dependence, unspecified, uncomplicated; F12.10 Cannabis abuse, uncomplicated
CPT/HCPCS: 96372; 99283; J1885

== ENCOUNTER 2018-11-11 05:20 | Emergency (ER) | payer MEDICAID | END 2018-11-11 07:28 | disposition left against medical advice (07) | LOC: ER 05:20 | DX: Z53.21 Procedure and treatment not carried out due to patient leaving prior to being seen by health care provider (principal) ==

== ENCOUNTER 2018-11-13 21:55 | Emergency (ER) | payer MEDICAID | END 2018-11-13 22:50 | disposition left against medical advice (07) | LOC: ER 21:55 | DX: Z53.21 Procedure and treatment not carried out due to patient leaving prior to being seen by health care provider (principal) ==

== ENCOUNTER 2018-11-14 01:53 | Emergency (ER) | payer MEDICAID ==
[~2018-11-14] VITALS: Ht 180.3 cm; Wt 68.0 kg
[2018-11-14 04:27] VITALS: BP 105/60
[2018-11-14] MEDS: IBUPROFEN 600MG TABLET PO ONE (04:27)
== END 2018-11-14 14:11 | disposition home or self-care (01) ==
LOC: ER 01:53
DX: G89.29 Other chronic pain (principal); M54.5 Low back pain; F12.10 Cannabis abuse, uncomplicated
CPT/HCPCS: 99283

== ENCOUNTER 2018-11-23 03:22 | Emergency (ER) | payer MEDICAID ==
[~2018-11-23] VITALS: Ht 180.3 cm; Wt 70.0 kg
[2018-11-23] MEDS ORDERED: ALBUTEROL (0.5%) 2.5MG/0.5ML NEB HHN ONE (04:15)
[2018-11-23] MEDS ORDERED: IBUPROFEN 600MG TABLET PO ONE (05:30)
[2018-11-23 05:40] VITALS: BP 132/65
== END 2018-11-23 05:50 | disposition home or self-care (01) ==
LOC: ER 03:22
DX: J40 Bronchitis, not specified as acute or chronic (principal); F17.200 Nicotine dependence, unspecified, uncomplicated; F12.10 Cannabis abuse, uncomplicated
CPT/HCPCS: 71045; 93005; 94640; 99283; J7611; Z7610

== ENCOUNTER 2018-11-27 08:25 | Emergency (ER) | payer MEDICAID ==
[~2018-11-27] VITALS: Ht 175.3 cm; Wt 68.2 kg
[2018-11-27 10:05] VITALS: BP 111/63
== END 2018-11-27 10:07 | disposition home or self-care (01) ==
LOC: ER 08:25
DX: M79.10 Myalgia, unspecified site (principal); K02.9 Dental caries, unspecified; K08.89 Other specified disorders of teeth and supporting structures; F12.10 Cannabis abuse, uncomplicated; F17.200 Nicotine dependence, unspecified, uncomplicated
CPT/HCPCS: 99283

== ENCOUNTER 2018-11-29 08:51 | Emergency (ER) | payer MEDICAID ==
[~2018-11-29] VITALS: Ht 177.8 cm; Wt 68.0 kg
[2018-11-29] MEDS ORDERED: KETOROLAC 60MG/2ML VIAL IM STA (09:35)
[2018-11-29 10:28] VITALS: BP 110/47
== END 2018-11-29 10:30 | disposition home or self-care (01) ==
LOC: ER 08:51
DX: M54.5 Low back pain (principal); G89.29 Other chronic pain; F17.200 Nicotine dependence, unspecified, uncomplicated; F12.10 Cannabis abuse, uncomplicated
CPT/HCPCS: 96372; 99283; J1885

== ENCOUNTER 2018-12-02 16:16 | Emergency (ER) | payer MEDICAID ==
[~2018-12-02] VITALS: Ht 177.8 cm; Wt 67.0 kg
[2018-12-02] MEDS ORDERED: SODIUM CHLORIDE 0.9% 1,000 ML IV ONE (17:30)
[2018-12-02] MEDS ORDERED: ONDANSETRON HCL 4MG/2ML INJ IV STA (17:30)
[2018-12-02] MEDS ORDERED: MORPHINE SULFATE 4 MG/ML CPJ (NOT FOR IM USE) IV STA (17:30)
[2018-12-02] MEDS ORDERED: MAGNESIUM/ALUMINUM HYDROXIDE/SIMETHICONE 30ML UDC PO ONE (17:30)
[2018-12-02] MEDS ORDERED: FAMOTIDINE 20MG/2ML VIAL IV ONE (17:30)
[2018-12-02 18:11] LABS: BASOPHILS % 0.4 % (0.0-2.0); EOSINOPHILS % 0.4 % (0.0-5.0); HEMATOCRIT. 43.6 % (42.0-52.0); HEMOGLOBIN. 14.9 g/dL (14.0-18.0); LYMPHOCYTES % 18.2 % (20.0-50.0); MEAN CORPUSCULAR HEMOGLOBIN 31.1 pg (28.0-32.0); MEAN CORPUSCULAR VOLUME 90.8 fL (80.0-94.0); MEAN PLATELET VOLUME 8.8 fl (7.4-10.4); MONOCYTES % 8.9 % (2.0-8.0); NEUTROPHILS % 72.1 % (40.0-76.0); PLATELET 194 x1000/uL (130-400); RED CELL DISTRIBUTION WIDTH 13.4 % (11.6-14.6)
[2018-12-02 18:15] LABS: CHLORIDE 100 mEq/L (98-107)
[2018-12-02 18:18] LABS: D-DIMER 0.27 mg/L FEU (<0.50); INR 1.2; PARTIAL THROMBOPLASTIN TIME 27.7 sec (23.4-31.0); PROTHROMBIN TIME 11.9 sec (9.6-11.0)
[2018-12-02 18:20] LABS: ETHANOL BLOOD < 10 mg/dL
[2018-12-02 20:17] LABS: CLARITY URINE CLEAR (CLEAR); COLOR URINE DARK YELLOW (YELLOW); KETONES URINE 1+ (NEGATIVE); LEUKOCYTE ESTERASE URINE TRACE (NEGATIVE); NITRITE URINE NEGATIVE (NEGATIVE); OCCULT BLOOD URINE NEGATIVE (NEGATIVE); PROTEIN URINE TRACE (NEGATIVE); SPECIFIC GRAVITY URINE 1.024 (1.005-1.030)
[2018-12-02 20:32] LABS: *AMPHETAMINES SCREEN URINE NEGATIVE (NEGATIVE); *BARBITURATES SCREEN URINE NEGATIVE (NEGATIVE)
[2018-12-02 20:33] LABS: *BENZODIAZEPINES SCREEN URINE NEGATIVE (NEGATIVE); *COCAINE SCREEN URINE NEGATIVE (NEGATIVE); METHADONE URINE SCREEN NEGATIVE (NEGATIVE); OPIATES URINE SCREEN PRESUMTIVE POSITIVE (NEGATIVE); PHENCYCLIDINE URINE SCREEN NEGATIVE (NEGATIVE)
[2018-12-02 20:34] LABS: CANNABINOID URINE SCREEN PRESUMTIVE POSITIVE (NEGATIVE)
[2018-12-03 14:00] VITALS: BP 117/53
== END 2018-12-03 14:02 | disposition home or self-care (01) ==
LOC: ER 16:16
DX: R07.89 Other chest pain (principal); K29.70 Gastritis, unspecified, without bleeding; Z59.0 Homelessness; R03.0 Elevated blood-pressure reading, without diagnosis of hypertension; F17.210 Nicotine dependence, cigarettes, uncomplicated; Z71.6 Tobacco abuse counseling; F12.90 Cannabis use, unspecified, uncomplicated
CPT/HCPCS: 36415; 71045; 80053; 80305; 80320; 81003; 83690; 83880; 84484; 85025; 85379; 85610; 85730; 93005; 96361; 96374; 96375; 99284; 99406; J2270; J2405; J3490; J7030; G0480

== ENCOUNTER 2018-12-04 04:04 | Emergency (ER) | payer MEDICAID ==
[~2018-12-04] VITALS: Ht 177.8 cm; Wt 68.0 kg
[2018-12-04 15:32] VITALS: BP 124/77
== END 2018-12-04 15:33 | disposition home or self-care (01) ==
LOC: ER 04:04
DX: Z76.89 Persons encountering health services in other specified circumstances (principal); Z59.0 Homelessness; F17.210 Nicotine dependence, cigarettes, uncomplicated; F12.90 Cannabis use, unspecified, uncomplicated
CPT/HCPCS: 99283

== ENCOUNTER 2019-02-19 21:45 | Emergency (ER) | payer MEDICAID ==
[~2019-02-19] VITALS: Ht 175.3 cm; Wt 68.0 kg
[2019-02-20] MEDS ORDERED: HYDROCODONE/ACETAMINOPHEN 5/325MG TABLET PO ONE (03:15)
[2019-02-20 12:45] VITALS: BP 115/60
== END 2019-02-20 11:13 | disposition home or self-care (01) ==
LOC: ER 21:45
DX: M25.561 Pain in right knee (principal); Y08.89XA Assault by other specified means, initial encounter; Y93.89 Activity, other specified; Y92.410 Unspecified street and highway as the place of occurrence of the external cause; Z59.0 Homelessness
CPT/HCPCS: 29505; 73560; 99283; L1830

== ENCOUNTER 2019-02-23 07:25 | Emergency (ER) | payer MEDICAID ==
[~2019-02-23] VITALS: Ht 177.8 cm; Wt 68.0 kg
[2019-02-23 09:45] VITALS: BP 115/72
== END 2019-02-23 09:45 | disposition home or self-care (01) ==
LOC: ER 07:41
DX: M25.561 Pain in right knee (principal); F12.10 Cannabis abuse, uncomplicated; W19.XXXA Unspecified fall, initial encounter; Y93.89 Activity, other specified; Y92.89 Other specified places as the place of occurrence of the external cause; Y99.8 Other external cause status
CPT/HCPCS: 99282

== ENCOUNTER 2019-02-24 10:33 | Emergency (ER) | payer MEDICAID ==
[~2019-02-24] VITALS: Ht 177.8 cm; Wt 69.0 kg
[2019-02-24] MEDS ORDERED: BACITRACIN ZINC OINT UDPKT TOP ONE (13:15)
[2019-02-24] MEDS ORDERED: IBUPROFEN 600MG TABLET PO ONE (13:15)
[2019-02-24] MEDS ORDERED: BACITRACIN 15GM TUBE TOP ONE (13:30)
[2019-02-24 15:16] VITALS: BP 110/68
== END 2019-02-24 15:25 | disposition home or self-care (01) ==
LOC: ER 10:33
DX: S60.521A Blister (nonthermal) of right hand, initial encounter (principal); M25.532 Pain in left wrist; X58.XXXA Exposure to other specified factors, initial encounter; Y93.9 Activity, unspecified; Y92.9 Unspecified place or not applicable; F12.90 Cannabis use, unspecified, uncomplicated
CPT/HCPCS: 29125; 73110; 99283

== ENCOUNTER 2019-11-11 18:15 | Emergency (ER) | payer MEDICAID ==
[~2019-11-11] VITALS: Ht 175.3 cm; Wt 68.5 kg
[2019-11-11] MEDS ORDERED: SODIUM CHLORIDE 0.9% 1,000 ML IV ONE (18:47)
[2019-11-11] MEDS ORDERED: KETOROLAC 30MG/ML VIAL IV STA (18:47)
[2019-11-11 19:27] LABS: CHLORIDE 103 mEq/L (98-107)
[2019-11-11 19:28] LABS: BASOPHILS % 0.3 % (0.0-2.0); EOSINOPHILS % 0.6 % (0.0-5.0); HEMATOCRIT. 42.8 % (42.0-52.0); HEMOGLOBIN. 14.6 g/dL (14.0-18.0); INR 1.1; LYMPHOCYTES % 14.7 % (20.0-50.0); MEAN CORPUSCULAR HEMOGLOBIN 30.8 pg (28.0-32.0); MEAN CORPUSCULAR VOLUME 90.3 fL (80.0-94.0); MEAN PLATELET VOLUME 9.1 fl (7.4-10.4); MONOCYTES % 11.4 % (2.0-8.0); PLATELET 206 x1000/uL (130-400); PROTHROMBIN TIME 11.7 sec (9.6-11.0); RED BLOOD CELL COUNT 4.74 mill/uL (4.7-6.1); RED CELL DISTRIBUTION WIDTH 13.6 % (11.6-14.6)
[2019-11-11 21:25] LABS: CLARITY URINE CLEAR (CLEAR); COLOR URINE YELLOW (YELLOW); KETONES URINE TRACE (NEGATIVE); LEUKOCYTE ESTERASE URINE NEGATIVE (NEGATIVE); NITRITE URINE NEGATIVE (NEGATIVE); OCCULT BLOOD URINE NEGATIVE (NEGATIVE); PROTEIN URINE NEGATIVE (NEGATIVE); SPECIFIC GRAVITY URINE 1.029 (1.005-1.030)
[2019-11-12 00:09] VITALS: BP 110/70
== END 2019-11-12 00:09 | disposition home or self-care (01) ==
LOC: ER 18:15
DX: R07.89 Other chest pain (principal); R10.32 Left lower quadrant pain
CPT/HCPCS: 36415; 71045; 74176; 80053; 81003; 83690; 84484; 85025; 85610; 93005; 96374; 99285; J1885; J7030

== ENCOUNTER 2019-12-09 02:23 | Emergency (ER) | payer MEDICAID ==
[~2019-12-09] VITALS: Ht 180.3 cm; Wt 68.1 kg
[2019-12-09 02:42] VITALS: BP 106/63
== END 2019-12-09 05:05 | disposition home or self-care (01) ==
LOC: ER 02:23
DX: M79.10 Myalgia, unspecified site (principal); R07.9 Chest pain, unspecified; F12.10 Cannabis abuse, uncomplicated
CPT/HCPCS: 71045; 93005; 99283

== ENCOUNTER 2021-06-16 21:53 | Emergency (ER) | payer MEDICAID ==
[~2021-06-16] VITALS: Ht 177.8 cm; Wt 68.0 kg
[2021-06-17] MEDS: IBUPROFEN 400MG TABLET PO ONE (00:55)
[2021-06-17] MEDS: ACETAMINOPHEN 325MG TABLET PO ONE (00:56)
[2021-06-17 01:55] VITALS: BP 121/81
== END 2021-06-17 01:55 | disposition home or self-care (01) ==
LOC: ER 21:53
DX: S16.1XXA Strain of muscle, fascia and tendon at neck level, initial encounter (principal); F12.10 Cannabis abuse, uncomplicated; W18.30XA Fall on same level, unspecified, initial encounter; Y93.89 Activity, other specified; Y92.89 Other specified places as the place of occurrence of the external cause; Y99.8 Other external cause status
CPT/HCPCS: 99283